=== PATIENT | male | born 1995 | race Caucasian/White ===

== ENCOUNTER 2017-06-12 17:32 | Emergency (ER) | payer MEDICAID, OTHER ==
[2017-06-12 17:54] VITALS: BMI 34.2
[2017-06-12 17:58] VITALS: O2SAT 98
[2017-06-12] MEDS ORDERED: Sodium Chloride 0.9% 1,000 ML IV ONE (18:53)
--- NOTE | 2017-06-12 19:05 | C.PDOC ---
History Of Present Illness Ayush Overton is a 21 year old male, with no significant past medical history , who presents to the emergency department complaining of chills, abdominal discomfort, and severe headache onset x3 days ago. Patient describes the discomfort as crampy, comes and goes and localized to the periumbilical region. Patient also reports a loss of appetite and x2 episodes of green watery diarrhea with some aching. Patient denies any fever, nausea, vomiting, cough, congestion, sick contacts or recent travels. No further medical complaints. PMD: Maria E Jara Time Seen by Provider: 06/12/17 18:35 Chief Complaint (Nursing): Abdominal Pain History Per: Patient History/Exam Limitations: no limitations Onset/Duration Of Symptoms: Days (x3), Waxing/Waning, Persistent Current Symptoms Are (Timing): Still Present Location Of Pain/Discomfort: Periumbilical Quality Of Discomfort: Cramping Associated Symptoms: Chills, Diarrhea (x2 episodes of green watery ), Loss Of Appetite. denies: Fever, Nausea, Vomiting, Other (cough, congestion) Past Medical History Reviewed: Historical Data, Nursing Documentation, Vital Signs Vital Signs: Last Vital Signs Temp 98.6 F 06/12/17 17:54 Pulse 89 06/12/17 17:54 Resp 20 06/12/17 17:54 BP 110/67 06/12/17 17:54 Pulse Ox 98 06/12/17 19:13 - Medical History PMH: HTN Surgical History: No Surg Hx Family History: States: Unknown Family Hx - Social History Hx Tobacco Use: No Hx Alcohol Use: No Hx Substance Use: No - Immunization History Hx Tetanus Toxoid Vaccination: Yes Hx Influenza Vaccination: No Hx Pneumococcal Vaccination: Yes Review Of Systems Constitutional: Positive for: Chills. Negative for: Fever ENT: Negative for: Nose Congestion Respiratory: Negative for: Cough Gastrointestinal: Positive for: Abdominal Pain (periumbilical crampy), Diarrhea (x2 episodes of green watery). Negative for: Nausea, Vomiting Neurological: Positive for: Headache Physical Exam - Physical Exam Appears: Well (in chair comfortable. Not dehydrated ), No Acute Distress Skin: Warm, Dry Head: Atraumatic, Normacephalic Eye(s): bilateral: Normal Inspection, PERRL, EOMI Ear(s): Bilateral: Normal Nose: Normal Oral Mucosa: Moist Throat: Normal Neck: Normal ROM, Supple Cardiovascular: Rhythm Regular, No Murmur Respiratory: Normal Breath Sounds (clear b/l), No Wheezing Gastrointestinal/Abdominal: Bowel Sounds, Soft, No Guarding, Other (central discomfort with palpation) Back: Normal Inspection, No CVA Tenderness, No Vertebral Tenderness Extremity: Normal ROM, No Deformity, No Swelling Neurological/Psych: Oriented x3 (alert) ED Course And Treatment - Laboratory Results Result Diagrams: 06/12/17 19:08 06/12/17 19:08 Lab Interpretation: No Acute Changes O2 Sat by Pulse Oximetry: 98 (RA) Pulse Ox Interpretation: Normal Reevaluation Time: 20:25 Reassessment Condition: Improved (Patient better after IV fluids, Bentyl IM and Tylenol.) Medical Decision Making Medical Decision Making: Initial Impression: abdominal pain Initial Plan: --CMP --Lipase --CBC w/ differential --Bentyl 20 mg IM --Sodium Chloride 1,000 ml IV 1,000 mls/hr --Stool culture --Urinalysis --reevaluation Disposition Counseled Patient/Family Regarding: Studies Performed, Diagnosis, Need For Followup, Rx Given - Disposition Referrals: [facility] [Outside] Disposition: HOME/ ROUTINE Disposition Time: 20:26 Condition: IMPROVED Prescriptions: Dicyclomine [Bentyl] 20 mg PO QID PRN #20 tab PRN Reason: Pain, Moderate (4-7) Ondansetron ODT [Zofran ODT] 1 odt PO QID PRN #10 odt PRN Reason: Nausea/Vomiting Instructions: Nutrition Tips for Relief of Diarrhea (ED), Acute Diarrhea (ED) Forms: [employer] (Beninese) - Clinical Impression Clinical Impression: Diarrhea - Scribe Statement Bucky Huynh Provider Attestation: All medical record entries made by the Scribe were at my direction and personally dictated by me. I have reviewed the chart and agree that the record accurately reflects my personal performance of the history, physical exam, medical decision making, and the department course for this patient. I have also personally directed, reviewed, and agree with the discharge instructions and disposition.
[2017-06-12] MEDS ORDERED: Sodium Chloride 0.9% 1,000 ML ONE (19:08)
[2017-06-12 19:19] LABS: BASO % 0.2 % (0.0-2.0); EOS # 0.2 K/uL (0.0-0.7); EOS % 2.1 % (0.0-4.0); HEMOGLOBIN 14.1 g/dL (12.0-18.0); LYMPH # 1.7 K/uL (1.0-4.3); LYMPH % 21.6 % (20.0-40.0); MEAN CELL VOLUME 82.6 fL (80.0-94.0); MEAN CORPUSCULAR HEMOGLOBIN 29.5 pg (27.0-31.0); MEAN CORPUSCULAR HGB CONC 35.7 g/dL (33.0-37.0); MEAN PLATELET VOLUME 7.9 fL (7.2-11.7); MONO # 0.8 K/uL (0.0-0.8); MONO % 10.5 % (0.0-10.0); NEUT % 65.6 % (50.0-75.0); NRBC % 0.1 % (0.0-2.0); RBC 4.77 Mil/uL (4.40-5.90); RED CELL DISTRIBUTION WIDTH 13.4 % (11.5-14.5); WHITE BLOOD COUNT 7.7 K/uL (4.8-10.8)
[2017-06-12 19:25] LABS: URINE BILIRUBIN NEGATIVE (NEGATIVE); URINE BLOOD NEGATIVE (NEGATIVE); URINE CLARITY CLEAR (Clear); URINE COLOR YELLOW (YELLOW); URINE GLUCOSE (UA) NEGATIVE (Normal); URINE LEUKOCYTE ESTERASE NEGATIVE Leu/uL (Negative); URINE NITRATE NEGATIVE (NEGATIVE); URINE PROTEIN NEGATIVE (NEGATIVE); URINE UROBILINOGEN 0.2 mg/dL (0.2-1.0)
[2017-06-12 19:39] LABS: ALB/GLOB RATIO 1.2 (1.0-2.1); ALT/SGPT 56 U/L (21-72); AST/SGOT 25 U/L (17-59); BLOOD UREA NITROGEN 11 mg/dL (9-20); CALCIUM 8.4 mg/dl (8.6-10.4); GFR AFRICAN-AMERICAN > 60; GFR NON-AFRICAN AMERICAN > 60; LIPASE 29 U/L (23-300)
[2017-06-12 20:45] VITALS: BP 118/68; PULSE 75; RESP 16; TEMP 98.1
== END 2017-06-12 20:44 | disposition home or self-care (01) ==
LOC: C.ER 17:32
DX: R19.7 Diarrhea, unspecified (principal); I10 Essential (primary) hypertension
CPT/HCPCS: 80053; 81001; 83690; 85025; 96360; 96372; 99284; J0500; J7040

== ENCOUNTER 2017-09-25 08:43 | Emergency (ER) | payer OTHER ==
[2017-09-25 08:43] VITALS: BMI 34.2
[2017-09-25 08:51] VITALS: BP 144/83; PULSE 71; RESP 20; TEMP 98.1; O2SAT 99
--- NOTE | 2017-09-25 09:04 | C.PDOC ---
History Of Present Illness 22 year old male presents to the emergency department with complaints of cold symptoms. Patient reports experiencing runny nose, sore throat, headaches, and generalized weakness. Patient denies fever, recent travel or sick contact. Chief Complaint (Nursing): Cough, Cold, Congestion History Per: Patient History/Exam Limitations: no limitations Current Symptoms Are (Timing): Still Present Location Of Pain: Throat, Diffuse Myalgias, Headache Associated Symptoms: Sore Throat, Myalgias, Nasal Congestion. denies: Fever Past Medical History Reviewed: Historical Data, Nursing Documentation, Vital Signs Vital Signs: Last Vital Signs Temp 98.1 F 09/25/17 08:47 Pulse 71 09/25/17 08:47 Resp 20 09/25/17 08:47 BP 144/83 09/25/17 08:47 Pulse Ox 99 09/25/17 10:50 - Medical History PMH: HTN, Hypercholesterolemia (no meds) Surgical History: No Surg Hx Family History: States: No Known Family Hx - Social History Hx Tobacco Use: No Hx Alcohol Use: No Hx Substance Use: No - Immunization History Hx Tetanus Toxoid Vaccination: No Hx Influenza Vaccination: Yes Hx Pneumococcal Vaccination: No Review Of Systems Except As Marked, All Systems Reviewed And Found Negative. Constitutional: Positive for: Malaise. Negative for: Fever ENT: Positive for: Nose Discharge, Nose Congestion, Throat Pain Neurological: Positive for: Headache Physical Exam - Physical Exam Appears: Non-toxic, No Acute Distress Eye(s): bilateral: Normal Inspection Nose: Epistaxis, Other (congested mucosa) Oral Mucosa: Moist Throat: Normal Neck: Normal, Trachea Midline, Supple Cardiovascular: Rhythm Regular Respiratory: Normal Breath Sounds (lungs CTA) Gastrointestinal/Abdominal: Normal Exam, Soft, No Tenderness ED Course And Treatment O2 Sat by Pulse Oximetry: 99 (RA) Pulse Ox Interpretation: Normal Progress Note: Patient is clear for discharge home. Disposition - Disposition Disposition: HOME/ ROUTINE Disposition Time: 09:01 Condition: STABLE Additional Instructions: Follow up with your PMD within 1-2 days. Return to ED if feel worse. Prescriptions: Fexofenadine HCl [LaurenNf] 180 mg PO DAILY #10 tab Fluticasone Nasal [Flonase] 1 spr NS BID #1 spr Ibuprofen [Motrin Tab] 600 mg PO Q8 #30 tab Instructions: Upper Respiratory Infection (ED) Forms: [facility] (Serbian), Work Excuse - Clinical Impression Clinical Impression: Upper respiratory infection - PA / [employer] / Resident Statement MD/DO has reviewed & agrees with the documentation as recorded. - Scribe Statement The provider has reviewed the documentation as recorded by the Scribe (Kaiden Vogel) All medical record entries made by the Scribe were at my direction and personally dictated by me. I have reviewed the chart and agree that the record accurately reflects my personal performance of the history, physical exam, medical decision making, and the department course for this patient. I have also personally directed, reviewed, and agree with the discharge instructions and disposition.
== END 2017-09-25 09:27 | disposition home or self-care (01) ==
LOC: C.ER 08:43
DX: J06.9 Acute upper respiratory infection, unspecified (principal)